=== PATIENT | female | born 1935 | race Caucasian/White ===

== ENCOUNTER 2016-08-06 14:10 | Emergency (ER) | payer OTHER, MEDICARE ==
[~2016-08-06] VITALS: Ht 157.5 cm; Wt 72.6 kg
[~2016-08-06 14:10] MED LIST: BACTRIM DS TAB1 EACH PO; LEVOTHYROXINE100 MC1 PO; NEXIUM40 M1 PO; OXYBUTYNIN CHLOR5 M2 PO; PRAVASTATIN SOD20 M2 PO; RESTASIS1 EACH OPH; ROZEREM8 M1 PO; ZOFRAN4 M2 PO; ZOMIG5 M2 PO
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
[2016-08-06 16:42] VITALS: BP 145/67
[2016-08-06] MEDS ORDERED: IBUPROFEN600 M1 PO (16:56)
== END 2016-08-06 17:05 ==
LOC: ERH 14:10
DX: S60.219A Contusion of unspecified wrist, initial encounter (principal); V89.2XXA Person injured in unspecified motor-vehicle accident, traffic, initial encounter; Y92.9 Unspecified place or not applicable
CPT/HCPCS: 73090-RT; 73110-LT; 73560-RT